=== PATIENT | male | born 1990 | race Caucasian/White ===

== ENCOUNTER 2022-10-11 10:00 | Emergency (ER) | payer MEDICAID ==
[~2022-10-11] VITALS: Ht 185.4 cm; Wt 113.9 kg
[2022-10-11 10:21] VITALS: BP 114/77
--- NOTE | 2022-10-11 10:27 | NUR ---
PT AMB TO BED 11
--- NOTE | 2022-10-11 10:40 | NUR ---
PT 32 YO MALE [facility], PRESENTS TO ED WITH CO COUGH AND HEADCHE , PT IS A/O X4 HEADHACHES PRESENT, DENIES DIZZINESS. PT HAS NORMAL RHYTHM RATE 85, NO EDEMA, LUNG SOUNDS CLEAR BILAT, DENIES SOB, COUGH PRESENT. PT ABD SOFT AND ROUND, NO DISTENTION, PT STATES HE HAD DIARRHEA LAST NIGHT. URINE IS YELLOW AND CLEAR, GAIT IS STEADY SKIN INTACT. HISTORY: NONE MEDICATIONS: DAYQUIL ALLERGIES: NONE. NOTED BY ASHLEY RN STUDENT
[2022-10-11] MEDS ORDERED: LIDO100S PO (11:17)
[2022-10-11] MEDS ORDERED: PROM118S5 PO (11:17)
[2022-10-11] MEDS ORDERED: SUD30 PO (11:17)
[2022-10-11] MEDS ORDERED: IBUP-2213 PO (11:17)
--- NOTE | 2022-10-11 11:35 | NUR ---
PT WAS SWABBED FOR GRISEL AND FLU, TAKEN TO LAB
[2022-10-11 11:39] VITALS: BP 114/77
--- NOTE | 2022-10-11 11:41 | NUR ---
Patient discharged with v/s stable. Written and verbal after care instructions given and explained. Patient alert, oriented and verbalized understanding of instructions. Ambulatory with steady gait. All questions addressed prior to discharge. ID band removed. Patient advised to follow up with PMD. Rx of IBUPROFEN, LIDOCAINE, PROMETHAZINE, SUDAFED (SENT) given. Patient educated on indication of medication including possible reaction and side effects. Opportunity to ask questions provided and answered. WORK NOTE GIVEN
--- NOTE | 2022-10-11 12:36 | NUR ---
pa notified, flu a+ cls unable to fax to infection control, charge made aware
== END 2022-10-11 11:39 | disposition home or self-care (01) ==
LOC: MED 10:00
DX: J10.1 Influenza due to other identified influenza virus with other respiratory manifestations (principal); Z20.822 Contact with and (suspected) exposure to COVID-19; R50.9 Fever, unspecified; R05.9 Cough, unspecified; J02.9 Acute pharyngitis, unspecified; R09.89 Other specified symptoms and signs involving the circulatory and respiratory systems; R51.9 Headache, unspecified; J34.89 Other specified disorders of nose and nasal sinuses; M79.10 Myalgia, unspecified site; Z79.899 Other long term (current) drug therapy
CPT/HCPCS: 99283